=== PATIENT | female | born 1950 | race Caucasian/White ===

== ENCOUNTER 2016-12-08 15:19 | Emergency (ER) | payer MEDICARE ==
[~2016-12-08] VITALS: Ht 165.1 cm; Wt 56.8 kg
[~2016-12-08 15:19] MED LIST: ALPR0.5T8 PO; CHOL10008 PO; ESTR1PAT13 TRANSDERM; FLUT16SP NS; MULT-1018 PO
[2016-12-08 15:28] VITALS: BP 152/85; PULSE 104; RESP 14; O2SAT 98
[2016-12-08 16:26] LABS: BASOPHILS % (AUTO) 0.9 % (0-3); EOSINOPHILS % (AUTO) 3.2 % (0-5); MONOCYTES % (AUTO) 6.5 % (4-12); Mean Corpuscular Hemoglobin 30.5 pg (27.0-35.0); Mean Corpuscular Volume 91.6 fL (81-100); NEUTROPHILS % (AUTO) 66.7 % (40-74); Platelet Count 214 bil/L (150-400)
--- NOTE | 2016-12-08 16:34 | ED.REPORT ---
HPI-General Illness Date of Service December 08, 2016 ED Provider: Dr. Gant 66 y/o female with a hx of migraines and anxiety presents to the ED complaining of intermittent dull headache, onset 3 days. The pt reports typically she has a headache in the back or front of her head but this headache is in the temporal region. The pt reports she wakes up with the pain and it stays constant at 5/10 throughout the day. She took an Excedrin,with little improvement. Associated sx include high blood pressure, shaking and dry mouth. The pt states she experiences similar shakes when she is hyperglycemic. She took a Xanax, which improved her BP and resolved the shaking. She denies anxiety, SOB, chest pain, nausea, and vomiting. Pt has been told she is pre-diabetic. Nursing Notes Stated Complaint: SHAKY, HEADACHES, RAPID HEART RATE, HIGH BP Chief Complaint: General Complaint Nursing Notes Reviewed: Yes Allergies: Coded Allergies: cefuroxime (Verified Allergy, Unknown, 07/09/16) codeine (Verified Adverse Reaction, Intermediate, nausea/vomiting, ) pt has taken other narcotics with no problem Scheduled Cholecalciferol (Vitamin D3) (Vitamin D3) 1,000 Unit Tab.chew 1,000 UNIT PO DAILY Estradiol (Vivelle-Dot) 1 Each Patch.tdsw 0.025 MG TRANSDERM Twice Weekly Fluticasone Propionate (Fluticasone Propionate Nasal) 16 Gm [place].susp 1 SPRAY NS BID Multivitamin (Multi Vitamin Daily) 1 Each Tablet 1 EACH PO DAILY Scheduled PRN Alprazolam (Alprazolam) 0.5 Mg Tablet 0.25 MG PO TID PRN PRN For Anxiety General Time Seen by MD: 16:33 Chief Complaint Headache Hx Obtained From: Patient Arrived By: Walk-in Sudden in Onset?: No Onset Occurred: 3 days ago Symptom Duration: Intermittent Location: : Head Quality: Painful Severity: Current: Pain level 5 out of 10 Severity: Maximum: Pain level 5 out of 10 Recent Healthcare: No recent doctor visit Similar Sx Previous: Yes Past Medical History Past Medical History Claustrophobia Estrogen Replacement Therapy Pre-Diabetes Migraines Past Surgical History Reports: , Hysterectomy Family History denies family history of AAA Smoking History Never Smoker Social History Other Social History: Good social support, , Local resident Ambulatory Status Independent Review of Systems Reports: High BP Reports: Dry mouth Full Review of Systems Respiratory: Denies: Shortness of breath Cardiovascular: Denies: Chest pain GI: Denies: Nausea, Vomiting Neurologic: Reports: Headache, Shaking Psychiatric: Denies: Anxiety Complete sys rev & neg: except as marked. Physical Exam Vital Signs Vital Signs Date Time Temp Pulse Resp B/P Pulse Ox O2 Delivery O2 Flow Rate FiO2 12/08/16 18:35 75 15 127/77 98 Room Air 12/08/16 17:42 69 16 128/72 100 12/08/16 15:28 36.2 104 14 152/85 98 Room Air Initial VS: Reviewed, Vital signs abnormal Head / Eyes: Atraumatic, Normocephalic, PERRL Neck: Supple, Non-tender, Full range of motion Respiratory: Breath sounds normal, Clear to auscultation, No respiratory distress Cardiovascular: Regular rate & rhythm, Heart sounds normal, Intact distal pulses Abdomen / GI: Soft, Non-tender, No guarding, No rebound, No distention Extremities: Vascular intact, Neuro intact, No swelling, No tenderness Skin: Warm, Dry, No cyanosis General/Constitutional: Awake, Alert, Cooperative Neurologic: Oriented X3, Speech NL, No motor deficits, No sensory deficits A detailed neuro exam was done, which was normal. Interpretation & Diagnostics Lab Results Interpretation Result Diagram: 12/08/16 1614 12/08/16 1614 Test 12/08/16 16:14 White Blood Count 5.9th/mm3 (3.8-10.1) Red Blood Count 4.39mil/mm3 (3.90-5.20) Hemoglobin 13.4g/dL (12.0-15.6) Hematocrit 40.2% (35.0-46.0) Mean Corpuscular Volume 91.6fL (81-100) Mean Corpuscular Hemoglobin 30.5pg (27.0-35.0) Mean Corpuscular Hemoglobin Concent 33.3% (32.0-37.0) Red Cell Distribution Width 12.7% (12.3-15.4) Platelet Count 214bil/L (150-400) Neutrophils (%) (Auto) 66.7% (40-74) Lymphocytes (%) (Auto) 22.7% (14-46) Monocytes (%) (Auto) 6.5% (4-12) Eosinophils (%) (Auto) 3.2% (0-5) Basophils (%) (Auto) 0.9% (0-3) Sodium Level 137mEq/L (134-144) Potassium Level 3.8mEq/L (3.5-5.2) Chloride Level 99mEq/L (97-108) Carbon Dioxide Level 24mmol/L (18-29) Blood Urea Nitrogen 15mg/dL (8-27) Creatinine 0.58mg/dL (0.57-1.00) Estimat Glomerular Filtration Rate 149mL/min (>59) Glucose Level 122mg/dL (60-99) Calcium Level 9.4mg/dL (8.5-10.1) Magnesium Level 2.3mg/dL (1.6-2.6) Total Bilirubin 0.3mg/dL (0.0-1.2) Aspartate Amino Transf (AST/SGOT) 19U/L (0-50) Alanine Aminotransferase (ALT/SGPT) 13U/L (0-32) Alkaline Phosphatase 43U/L (25-165) Troponin T < 0.010ug/L (0.0-0.011) Total Protein 7.1g/dL (6.4-8.4) Albumin 4.1g/dL (3.4-5.0) Hold Daniel Top Tube Received (Received) ECG Interpretation ECG Interpretation: Normal sinus rhtyhm. Rate 73 Normal axis No acute ST or T-wave changes Time: 16:52 Interpreted by: ED physician CT Head Interpretation IMPRESSION: 1. 1.9 x 1.7 x 1.2 cm calcified meningioma over the left frontal lobe, with localized mild mass effect. 2. Clustered small calcifications within the posterior left cerebellar hemisphere may represent dystrophic calcification from remote ischemic insult, or underlying vascular malformation. Consider further evaluation with nonemergent pre- and post contrast brain MRI. Dictated by: Sukh Luong M.D. on 12/08/2016 at 17:13 Approved by: Sukh Luong M.D. on 12/08/2016 at 17:16 Study: Head CT no contrast Interpretation / Wet Read by: Interpret - Radiologist Re-Eval/Medical Decision Med Decision/Clinical Course This patient presents with multiple symptoms which have essentially resolved. It she said she has had shakiness or hypoglycemia did not need anything in her symptoms resolved after taking Xanax. Its unclear as the cause of her symptoms. She had a CT due to a new kind of headache and a meningioma was found , this is likely not a cause of her headache as it appears like it is in there for several years per radiology. A partial list of differential diagnoses considered were hypertensive emergency, dysrhythmia, acute coronary syndrome, hypoglycemia, anxiety, and pulmonary embolus. Source of Hx: Old records Time of Eval: 17:52 Patient Status: Condition improved Re-Evaluation/Progress Note: Rechecked pt. Discussed lab, imaging results and diagnosis. Informed the pt of the plan to discharge. Pt understands and agrees with plan. F/U instructions and RTER warning given. All questions addressed. Counseled Regarding: Diagnosis, Lab results, Need for follow-up, When/why to return to ED Discharge & Departure Primary Impression: Hypertension Hypertension type: unspecified secondary hypertension Qualified Code: I15.9 - Secondary hypertension, unspecified Additional Impressions: Tachycardia induced cardiomyopathy Headache Headache type: unspecified Headache chronicity pattern: unspecified pattern Intractability: not intractable Qualified Code: R51 - Headache Meningioma Disposition: Home Discharge Condition All VS Reviewed: Yes Condition: Stable Patient Instructions: Meningioma (ED) Additional Instructions: You need an MRI with and without contrast to evaluate your meningioma. There are differing treatment depending on what kind you have. Follow up with your doctor to discuss obtaining the MRI and for further evaluation of the meningioma. Return to the emergency department in case of recurrent symptoms or any new or worsening symptoms. Referrals: Aaron Childs MD (PCP) Scribe Attestation Portions of this note were transcribed by Steve Samayoa. I, , personally performed the history, physical exam and medical decision-making;I reviewed and confirmed the accuracy of the information in the transcribed note. Signed by Hebert Rose. 12/08/16 [id number] copies to: Aaron Childs MD, Jena M MD December 08, 2016 16:33 Steve Samayoa December 08, 2016 16:38
[2016-12-08] MEDS ORDERED: 0.9% Sodium Chloride 1,000 ML IV ONE (16:45)
[2016-12-08] MEDS ORDERED: ProchlorPERazine 5 mg/mL 2 mL Inj IVPUSH ONE (16:45)
[2016-12-08 16:54] LABS: TROPONIN T < 0.010 ug/L (0.0-0.011)
[2016-12-08 16:59] LABS: Magnesium 2.3 mg/dL (1.6-2.6)
--- NOTE | 2016-12-08 17:23 | DRSVH ---
PROCEDURE: CT BRAIN WITHOUT CONTRAST ([id number]) INDICATIONS: 66 year-old female with new constant headaches. TECHNIQUE: Noncontrast 4.5 mm thick angled axial sections acquired from the foramen magnum to the vertex, with c oronal reformats. COMPARISON: None. FINDINGS: Image quality: Excellent. CSF spaces: Basal cisterns are patent. No extra-axial fluid collections. Ventricles are normal in size and shape. Brain: No midline shift. Heterogeneously calcified extra axial mass lies over the left frontal lobe, measuring 1.9 x 1.7 x 1.2 cm. On axial image 10, there is clustered punctate calcification within t he posterior left cerebellar hemisphere. No intracranial bleeds. Virgen-white matter interface is josemanuel l. Skull and face: Calvarium and visualized facial bones are intact, without suspicious lesions. Sinuses: Visualized sinuses and mastoids are clear. IMPRESSION: 1. 1.9 x 1.7 x 1.2 cm calcified meningioma over the left frontal lobe, with localized mild mass effec t. 2. Clustered small calcifications within the posterior left cerebellar hemisphere may represent dystr ophic calcification from remote ischemic insult, or underlying vascular malformation. Consider furthe r evaluation with nonemergent pre- and post contrast brain MRI. Dictated by: Sukh Luong M.D. on 12/08/2016 at 17:13 Approved by: Sukh Luong M.D. on 12/08/2016 at 17:16
[2016-12-08 17:42] VITALS: BP 128/72; PULSE 69; RESP 16; O2SAT 100
[2016-12-08 18:35] VITALS: BP 127/77; PULSE 75; RESP 15; O2SAT 98
== END 2016-12-08 18:25 | disposition home or self-care (01) ==
LOC: SED 15:19
DX: I15.9 Secondary hypertension, unspecified (principal); D32.9 Benign neoplasm of meninges, unspecified; I42.9 Cardiomyopathy, unspecified; R00.0 Tachycardia, unspecified; Z88.1 Allergy status to other antibiotic agents; Z88.5 Allergy status to narcotic agent
CPT/HCPCS: 36415; 70450; 80053; 83735; 84484; 85025; 93005; 96361; 96374; 96375; 99285; J0780; J1200; J7030